=== PATIENT | male | born 1970 | race Hispanic/Latino ===

== ENCOUNTER 2017-07-23 19:16 | Emergency (ER) | payer BC, MEDICARE ==
[2017-07-23 19:54] LABS: #Basophils 0.1 thou/uL (0.0-0.2); #Eosinphils 0.2 thou/uL (0.0-0.7); #Monocytes 0.6 thou/uL (0.11-0.59); #Neutrophils 4.9 thou/uL (1.40-6.50); %Eosinophils 3.1 % (0.0-10.0); %Lymphocytes 25.1 % (21.0-51.0); %Monocytes 7.9 % (0.0-10.0); Hemoglobin 14.7 g/dL (14.0-18.0); Mean Corpuscular HGB CONC 31.9 g/dL (32.0-36.0); Mean Corpuscular Hemoglobin 27.2 pg (27.0-31.0); Mean Corpuscular Volume 85.5 fl (80.0-94.0); Platelet Count 200 thou/uL (130-400); RBC Distribution Width 12.7 % (11.5-14.5); Red Blood Cell (RBC) Count 5.39 mill/uL (4.70-6.10); White Blood Cell (WBC) Count 7.8 thou/uL (4.8-10.8)
[2017-07-23] MEDS ORDERED: metFORMIN 500 MG TAB ONE ×2 (19:58)
[2017-07-23] MEDS ORDERED: Metoprolol Tartrate 5 MG/5 ML VIAL ONE (19:58)
[2017-07-23] MEDS ORDERED: Aspirin 325 MG TAB ONE (19:58)
[2017-07-23 20:08] LABS: Anion Gap 14 mmol/L (10-20); BUN (Urea Nitrogen) 22 mg/dL (8.9-20.6); Calc. Creatinine Clearance 0 mL/min (70-130); Calcium 8.9 mg/dL (7.8-10.44); Carbon Dioxide 24 mmol/L (22-29); Chloride 107 mmol/L (98-107); Estimated GFR-MDRD 34; Glucose 202 mg/dL (70-105); Potassium 3.7 mmol/L (3.5-5.1); Sodium 141 mmol/L (136-145)
--- NOTE | 2017-07-23 20:43 | RAD ---
PORTABLE CHEST: 07/23/2017 PROVIDED CLINICAL HISTORY: Dyspnea. COMPARISON: 12/14/2015 FINDINGS: Evaluation is limited by patient body habitus. The cardiac silhouette appears enlarged. Prominence of the pulmonary vasculature and pulmonary interstitium are noted. No definite evidence for pneumoth orax. No definite focal consolidation. Evaluation for pleural effusion is limited. IMPRESSION: 1. Limited study. 2. Findings suggesting congestive failure. POS: [facility]
== END 2017-07-23 20:38 | disposition home or self-care (01) ==
LOC: MADERS 19:16
DX: I12.9 Hypertensive chronic kidney disease with stage 1 through stage 4 chronic kidney disease, or unspecified chronic kidney disease (principal); N18.3 Chronic kidney disease, stage 3 (moderate); G47.30 Sleep apnea, unspecified; I48.91 Unspecified atrial fibrillation; E11.9 Type 2 diabetes mellitus without complications; E78.5 Hyperlipidemia, unspecified; Z79.899 Other long term (current) drug therapy
CPT/HCPCS: 36416; 71045; 80048; 82947; 83880; 85025; 93005; 96374

== ENCOUNTER 2017-09-19 11:42 | Emergency (ER) | payer BC, MEDICARE ==
[~2017-09-19 11:42] MED LIST: Sodium Chloride 0.9% 1,000 ML BAG ONE
[2017-09-19 12:22] LABS: #Eosinphils 0.1 thou/uL (0.0-0.7); #Lymphocytes 1.1 thou/uL (1.20-3.40); #Monocytes 0.6 thou/uL (0.11-0.59); #Neutrophils 7.4 thou/uL (1.40-6.50); %Basophils 0.5 % (0.0-1.0); %Eosinophils 1.3 % (0.0-10.0); %Lymphocytes 11.5 % (21.0-51.0); %Neutrophils 80.7 % (42.0-75.0); Hemoglobin 13.9 g/dL (14.0-18.0); Mean Corpuscular HGB CONC 32.7 g/dL (32.0-36.0); Mean Corpuscular Volume 85.8 fL (78.0-98.0); Mean Platelet Volume 8.2 fL (7.4-10.4); Platelet Count 181 thou/uL (130-400); RBC Distribution Width 12.5 % (11.5-14.5); Red Blood Cell (RBC) Count 4.94 mill/uL (4.70-6.10); White Blood Cell (WBC) Count 9.2 thou/uL (4.8-10.8)
[2017-09-19] MEDS ORDERED: Nitroglycerin 2% Ointment 1 INCH/1 GM Packet ONE (12:23)
[2017-09-19] MEDS ORDERED: Clindamycin/D5W 900 mg/50 ml Premix Bag ONE (12:23)
[2017-09-19] MEDS ORDERED: Acetaminophen 500 MG TAB ONE (12:23)
[2017-09-19 12:38] LABS: ALT (SGPT) 20 U/L (8-55); AST (SGOT) 14 U/L (5-34); Albumin 3.5 g/dL (3.5-5.0); Alkaline Phosphatase 37 U/L (40-150); Anion Gap 14 mmol/L (10-20); BUN (Urea Nitrogen) 19 mg/dL (8.9-20.6); Bilirubin, Total 0.6 mg/dL (0.2-1.2); Calc. Creatinine Clearance 0 mL/min (70-130); Calcium 8.7 mg/dL (7.8-10.44); Carbon Dioxide 25 mmol/L (22-29); Chloride 107 mmol/L (98-107); Estimated GFR-MDRD 36; Globulin 3.1 g/dL (2.4-3.5); Glucose 147 mg/dL (70-105); Potassium 4.2 mmol/L (3.5-5.1); Protein, Total 6.6 g/dL (6.0-8.3); Sodium 142 mmol/L (136-145)
[2017-09-19 13:03] LABS: Bilirubin Negative (Negative); Blood, Urine Negative (Negative); Clarity Clear (Clear); Glucose, Urine (Dipstick) Negative (Negative); Leukocyte Negative (Negative); Nitrite Negative (Negative); Protein, Urine (Dipstick) > or equal to 300 mg/dL (Neg-Trace); Urobilinogen 0.2 mg/dL (0.2-1.0); pH, Urine 5.5 (5.0-9.0)
[2017-09-19 13:08] LABS: Bacteria/HPF Rare-Few HPF (None Seen); RBC/HPF 0-3 HPF (0-3); Squamous Epithelial 0-3 HPF (0-3); WBC/HPF 0-3 HPF (0-3)
== END 2017-09-19 14:20 | disposition short-term general hospital (02) ==
LOC: MADERS 11:42
DX: L03.115 Cellulitis of right lower limb (principal); I48.91 Unspecified atrial fibrillation; G47.30 Sleep apnea, unspecified; I12.9 Hypertensive chronic kidney disease with stage 1 through stage 4 chronic kidney disease, or unspecified chronic kidney disease; E11.22 Type 2 diabetes mellitus with diabetic chronic kidney disease; N18.3 Chronic kidney disease, stage 3 (moderate)
CPT/HCPCS: 80053; 81003; 81015; 83605; 85025; 87040; 87086; 96361; 96365; J3490

== ENCOUNTER 2019-04-29 08:59 | Outpatient (CLI) | payer BC ==
--- NOTE | 2019-04-29 09:49 | ULT ---
US Renal Bilateral STANDARD History: Chronic kidney disease stage IV Comparison: None. Findings: Real-time grayscale and color evaluation of the kidneys and urinary bladder was performed. The right kidney measures 12.4 x 4.5 x 7.4 cm and the left kidney measures 12.1 x 5.3 x 6.9 cm. Urina ry bladder is unremarkable. No significant post void residual. No renal mass, hydronephrosis, or abnormal calcifications. Impression: No evidence for obstructive uropathy.
== END 2019-04-29 09:00 | disposition home or self-care (01) ==
LOC: MADULT 08:59
PROVIDERS: ATTEND Internal Medicine
DX: N18.4 Chronic kidney disease, stage 4 (severe) (principal)
CPT/HCPCS: 76770

== ENCOUNTER 2020-05-10 18:39 | Emergency (ER) | payer BC ==
[2020-05-10] MEDS ORDERED: Furosemide 40 MG/4 ML VIAL ONE ×2 (19:12→20:30)
[2020-05-10 19:20] LABS: #Basophils 0.1 thou/uL (0.0-0.2); #Eosinphils 0.1 thou/uL (0.0-0.7); #Lymphocytes 1.5 thou/uL (1.20-3.40); #Monocytes 0.9 thou/uL (0.11-0.59); #Neutrophils 9.3 thou/uL (1.40-6.50); %Basophils 0.6 % (0.0-1.0); %Eosinophils 0.8 % (0.0-10.0); %Lymphocytes 12.6 % (21.0-51.0); %Monocytes 7.2 % (0.0-10.0); %Neutrophils 78.9 % (42.0-75.0); Mean Corpuscular HGB CONC 32.2 g/dL (32.0-36.0); Mean Corpuscular Hemoglobin 28.4 pg (27.0-31.0); Mean Platelet Volume 8.5 fL (7.4-10.4); Platelet Count 227 thou/uL (130-400); RBC Distribution Width 12.4 % (11.5-14.5); Red Blood Cell (RBC) Count 4.57 mill/uL (4.70-6.10); White Blood Cell (WBC) Count 11.8 thou/uL (4.8-10.8)
[2020-05-10 19:33] LABS: ALT (SGPT) 16 U/L (8-55); AST (SGOT) 10 U/L (5-34); Albumin 3.4 g/dL (3.5-5.0); Alkaline Phosphatase 52 U/L (40-110); Anion Gap 14 mmol/L (10-20); BUN (Urea Nitrogen) 54 mg/dL (8.9-20.6); Bilirubin, Total 0.7 mg/dL (0.2-1.2); CK (CPK) 199 U/L (30-200); Calc. Creatinine Clearance 0 mL/min (70-130); Carbon Dioxide 23 mmol/L (22-29); Chloride 104 mmol/L (98-107); Globulin 3.6 g/dL (2.4-3.5); Glucose 144 mg/dL (70-105); Potassium 4.3 mmol/L (3.5-5.1); Sodium 137 mmol/L (136-145)
[2020-05-10 19:51] LABS: CKMB 4.5 ng/mL (0-6.6)
[2020-05-10 20:14] LABS: INR-International Normal Ratio 1.1; PTT 36.5 sec (22.9-36.1); Prothrombin Time 14.1 sec (12.0-14.7)
[2020-05-10 20:18] LABS: Bilirubin Negative (Negative); Blood, Urine Moderate (Negative); Clarity Clear (Clear); Glucose, Urine (Dipstick) 100 mg/dL (Negative); Ketone, Urine Negative (Negative); Leukocyte Negative (Negative); Nitrite Negative (Negative); Protein, Urine (Dipstick) > or equal to 300 mg/dL (Neg-Trace); Urobilinogen 0.2 mg/dL (Less than 2); pH, Urine 5.5 (5.0-9.0)
[2020-05-10 20:23] LABS: Bacteria/HPF Rare-Few HPF (None Seen); Mucous/LPF 1+ LPF (<2+); WBC/HPF 0-3 HPF (0-3)
[2020-05-10 20:25] LABS: Cocaine Metabolite Screen Not Detected (NotDetected); Methamphetamine Not Detected (NotDetected); Opiate Screen Not Detected (NotDetected); Phencyclidine (PCP) Not Detected (NotDetected); THC/Cannabinoid Screen Not Detected (NotDetected)
[2020-05-10 20:26] LABS: Amphetamine Not Detected (NotDetected); Barbiturates Screen Not Detected (NotDetected); Benzodiazepine Screen Not Detected (NotDetected); Medtox Control Line Valid? VALID (VALID); Methadone Not Detected (NotDetected); Oxycodone Screen Not Detected (NotDetected); Tricyclic Screen Not Detected (NotDetected)
== END 2020-05-10 21:16 | disposition short-term general hospital (02) ==
LOC: MADERS 18:39
DX: I13.0 Hypertensive heart and chronic kidney disease with heart failure and stage 1 through stage 4 chronic kidney disease, or unspecified chronic kidney disease (principal); I50.9 Heart failure, unspecified; N18.30 Chronic kidney disease, stage 3 unspecified; N17.9 Acute kidney failure, unspecified; R79.89 Other specified abnormal findings of blood chemistry; I48.91 Unspecified atrial fibrillation; G47.30 Sleep apnea, unspecified; E78.5 Hyperlipidemia, unspecified; Z79.899 Other long term (current) drug therapy; Z79.01 Long term (current) use of anticoagulants
CPT/HCPCS: 71045; 80053; 80306; 81003; 81015; 82550; 82553; 83880; 84443; 84484; 85025; 85610; 85730; 93005; 94760; 96374; 96376; J1940

== ENCOUNTER 2020-11-15 05:12 | Emergency (ER) | payer MEDICARE, MEDICAID | END 2020-11-15 07:00 | disposition home or self-care (01) | LOC: MADERS 05:12 | DX: S50.01XA Contusion of right elbow, initial encounter (principal); L02.213 Cutaneous abscess of chest wall; G47.30 Sleep apnea, unspecified; I48.91 Unspecified atrial fibrillation; I12.9 Hypertensive chronic kidney disease with stage 1 through stage 4 chronic kidney disease, or unspecified chronic kidney disease; E11.22 Type 2 diabetes mellitus with diabetic chronic kidney disease; N18.30 Chronic kidney disease, stage 3 unspecified; E78.5 Hyperlipidemia, unspecified; E78.00 Pure hypercholesterolemia, unspecified; Z79.01 Long term (current) use of anticoagulants; Z79.84 Long term (current) use of oral hypoglycemic drugs; Z79.899 Other long term (current) drug therapy; Z99.2 Dependence on renal dialysis; W18.30XA Fall on same level, unspecified, initial encounter | CPT/HCPCS: 93005 ==

== ENCOUNTER 2021-05-28 19:38 | Emergency (ER) | payer MEDICARE, MEDICAID ==
[2021-05-28 20:17] LABS: #Eosinphils 0.1 thou/uL (0.0-0.7); #Lymphocytes 1.2 thou/uL (1.20-3.40); #Monocytes 0.4 thou/uL (0.11-0.59); #Neutrophils 6.4 thou/uL (1.40-6.50); %Basophils 0.4 % (0.0-1.0); %Eosinophils 1.8 % (0.0-10.0); %Lymphocytes 14.7 % (21.0-51.0); %Monocytes 5.1 % (0.0-10.0); Hemoglobin 10.8 g/dL (14.0-18.0); Mean Corpuscular HGB CONC 34.4 g/dL (32.0-36.0); Mean Corpuscular Hemoglobin 32.9 pg (27.0-31.0); Mean Corpuscular Volume 95.4 fL (78.0-98.0); Mean Platelet Volume 5.4 fL (7.4-10.4); Platelet Count 208 thou/uL (130-400); RBC Distribution Width 13.4 % (11.5-14.5); Red Blood Cell (RBC) Count 3.29 mill/uL (4.70-6.10); White Blood Cell (WBC) Count 8.2 thou/uL (4.8-10.8)
[2021-05-28 20:32] LABS: Base Excess-Venous -3.3 mmol/L (-2.0 to 3.0); Bicarbonate (HCO3v) 22.8 mmol/L (22.0-28.0); CO2 Tension (PvCO2) 44.2 mmHg (42.0-51.0); Calcium, Ionized 0.87 mmol/L (1.15-1.33); Chloride 106 mmol/L (98-107); Hemoglobin - Calc 10.6 g/dL (14.0-18.0); Potassium 4.9 mmol/L (3.5-5.1); Sodium 137 mmol/L (138-145); T. Carbon Dioxide 24.1 mmol/L (22.0-28.0); vO2 Saturation-calc 97.9 % (60.0-85.0)
[2021-05-28 20:38] LABS: ALT (SGPT) 17 U/L (8-55); AST (SGOT) 9 U/L (5-34); Albumin 3.8 g/dL (3.5-5.0); Alkaline Phosphatase 60 U/L (40-110); Anion Gap 29 mmol/L (10-20); BUN (Urea Nitrogen) 101 mg/dL (8.4-25.7); Bilirubin, Total 0.6 mg/dL (0.2-1.2); Calc. Creatinine Clearance 0 mL/min (70-130); Calcium 8.4 mg/dL (7.8-10.44); Carbon Dioxide 20 mmol/L (22-29); Chloride 99 mmol/L (98-107); Globulin 4.1 g/dL (2.4-3.5); Magnesium 2.2 mg/dL (1.6-2.6); Protein, Total 7.9 g/dL (6.0-8.3); Sodium 143 mmol/L (136-145)
[2021-05-28 20:49] LABS: Glucose 57 mg/dL (70-105)
== END 2021-05-28 22:11 | disposition short-term general hospital (02) ==
LOC: MADERS 19:38
DX: J96.00 Acute respiratory failure, unspecified whether with hypoxia or hypercapnia (principal); E87.70 Fluid overload, unspecified; G47.30 Sleep apnea, unspecified; I48.91 Unspecified atrial fibrillation; E78.2 Mixed hyperlipidemia; E11.22 Type 2 diabetes mellitus with diabetic chronic kidney disease; I12.9 Hypertensive chronic kidney disease with stage 1 through stage 4 chronic kidney disease, or unspecified chronic kidney disease; N18.30 Chronic kidney disease, stage 3 unspecified; Z79.84 Long term (current) use of oral hypoglycemic drugs; Z79.899 Other long term (current) drug therapy; Z79.01 Long term (current) use of anticoagulants
CPT/HCPCS: 36416; 71045; 80053; 82330; 82803; 83735; 83880; 84484; 85025; 93005

== ENCOUNTER 2021-10-28 17:38 | Emergency (ER) | payer OTHER ==
[~2021-10-28 17:38] MED LIST changes: -Sodium Chloride 0.9% 1,000 ML BAG ONE; +Sodium Chloride 0.9% 500 ML BAG ONE
[2021-10-28 18:41] LABS: #Basophils 0.1 thou/uL (0.0-0.2); #Eosinphils 0.2 thou/uL (0.0-0.7); #Lymphocytes 1.5 thou/uL (1.20-3.40); #Monocytes 0.6 thou/uL (0.11-0.59); #Neutrophils 7.5 thou/uL (1.40-6.50); %Basophils 0.7 % (0.0-1.0); %Eosinophils 2.5 % (0.0-10.0); %Lymphocytes 15.4 % (21.0-51.0); %Neutrophils 75.5 % (42.0-75.0); Hemoglobin 10.4 g/dL (14.0-18.0); Mean Corpuscular HGB CONC 31.5 g/dL (32.0-36.0); Mean Corpuscular Volume 95.4 fL (78.0-98.0); Mean Platelet Volume 8.6 fL (7.4-10.4); Platelet Count 240 thou/uL (130-400); RBC Distribution Width 13.8 % (11.5-14.5); Red Blood Cell (RBC) Count 3.46 mill/uL (4.70-6.10); White Blood Cell (WBC) Count 9.9 thou/uL (4.8-10.8)
[2021-10-28 18:57] LABS: ALT (SGPT) 18 U/L (8-55); AST (SGOT) 10 U/L (5-34); Albumin 3.7 g/dL (3.5-5.0); Alkaline Phosphatase 65 U/L (40-110); Anion Gap 18 mmol/L (10-20); BUN (Urea Nitrogen) 29 mg/dL (8.4-25.7); Bilirubin, Total 0.5 mg/dL (0.2-1.2); Calc. Creatinine Clearance 0 mL/min (70-130); Calcium 9.5 mg/dL (7.8-10.44); Carbon Dioxide 30 mmol/L (22-29); Chloride 95 mmol/L (98-107); Estimated GFR 7; Globulin 4.4 g/dL (2.4-3.5); Glucose 154 mg/dL (70-105); INR-International Normal Ratio 1.3; Potassium 4.7 mmol/L (3.5-5.1); Protein, Total 8.1 g/dL (6.0-8.3); Prothrombin Time 16.3 sec (12.0-14.7); Sodium 138 mmol/L (136-145)
[2021-10-28] MEDS ORDERED: Clindamycin/D5W 900 mg/50 ml Premix Bag ONE (18:57)
[2021-10-28] MEDS ORDERED: Cefepime 2 GM VIAL ONE (18:57)
[2021-10-28] MEDS ORDERED: Sodium Chloride 0.9% 250 ML 500 ML ONE (18:57)
[2021-10-28] MEDS ORDERED: Sodium Chloride 0.9% 100 ML ONE (18:57)
[2021-10-28 19:18] LABS: PTT 36.9 sec (22.9-36.1)
== END 2021-10-28 21:16 | disposition short-term general hospital (02) ==
LOC: MADERS 17:38
DX: L02.214 Cutaneous abscess of groin (principal); I48.91 Unspecified atrial fibrillation; I12.0 Hypertensive chronic kidney disease with stage 5 chronic kidney disease or end stage renal disease; E11.22 Type 2 diabetes mellitus with diabetic chronic kidney disease; N18.6 End stage renal disease; E78.00 Pure hypercholesterolemia, unspecified; G47.30 Sleep apnea, unspecified; E66.01 Morbid (severe) obesity due to excess calories; Z68.45 Body mass index [BMI] 70 or greater, adult; Z99.2 Dependence on renal dialysis; Z79.01 Long term (current) use of anticoagulants; Z79.899 Other long term (current) drug therapy
CPT/HCPCS: 36415; 80053; 82550; 83605; 85025; 85610; 85730; 86140; 87040; 87070; 87077; 87186; 87205; 94760; 96365; 96367; 96368; J0692; J3370; J3490; J7030; J7050

== ENCOUNTER 2022-02-26 14:15 | Emergency (ER) | payer MEDICAID, OTHER ==
[2022-02-26] MEDS ORDERED: Dexamethasone 10 MG/ML VIAL ONE (15:01)
== END 2022-02-26 16:20 | disposition home or self-care (01) ==
LOC: MADERS 14:15
DX: R05.9 Cough, unspecified (principal); I12.9 Hypertensive chronic kidney disease with stage 1 through stage 4 chronic kidney disease, or unspecified chronic kidney disease; E11.22 Type 2 diabetes mellitus with diabetic chronic kidney disease; N18.9 Chronic kidney disease, unspecified; E78.00 Pure hypercholesterolemia, unspecified; Z99.2 Dependence on renal dialysis; Z79.01 Long term (current) use of anticoagulants; Z20.822 Contact with and (suspected) exposure to COVID-19
CPT/HCPCS: 71045; 87804; 96372; J1100; J7620; U0003; U0005

== ENCOUNTER 2022-03-05 14:42 | Emergency (ER) | payer OTHER | END 2022-03-05 16:01 | disposition home or self-care (01) | LOC: MADERS 14:42 | DX: J20.9 Acute bronchitis, unspecified (principal); E11.22 Type 2 diabetes mellitus with diabetic chronic kidney disease; I12.0 Hypertensive chronic kidney disease with stage 5 chronic kidney disease or end stage renal disease; N18.5 Chronic kidney disease, stage 5; Z99.2 Dependence on renal dialysis; E78.00 Pure hypercholesterolemia, unspecified; E66.9 Obesity, unspecified; Z79.899 Other long term (current) drug therapy; Z79.01 Long term (current) use of anticoagulants | CPT/HCPCS: 99283 ==

== ENCOUNTER 2022-03-09 15:51 | Emergency (ER) | payer OTHER ==
[2022-03-09] MEDS ORDERED: Benzonatate 100 MG CAP ONE (18:24)
[2022-03-09] MEDS ORDERED: Lidocaine 5% Patch TD SCH (19:00)
[2022-03-10] MEDS ORDERED: Transdermal Patch Removal TOP SCH (07:00)
== END 2022-03-09 19:10 | disposition home or self-care (01) ==
LOC: MADERS 15:51
DX: S23.41XA Sprain of ribs, initial encounter (principal); J20.9 Acute bronchitis, unspecified; I12.9 Hypertensive chronic kidney disease with stage 1 through stage 4 chronic kidney disease, or unspecified chronic kidney disease; E11.22 Type 2 diabetes mellitus with diabetic chronic kidney disease; N18.30 Chronic kidney disease, stage 3 unspecified; E78.5 Hyperlipidemia, unspecified; X58.XXXA Exposure to other specified factors, initial encounter; Z79.899 Other long term (current) drug therapy; Z99.2 Dependence on renal dialysis; Z79.01 Long term (current) use of anticoagulants
CPT/HCPCS: 71046; J7620

== ENCOUNTER 2022-03-18 01:36 | Emergency (ER) | payer OTHER ==
[2022-03-18 01:59] LABS: #Basophils 0.1 thou/uL (0.0-0.2); #Lymphocytes 0.6 thou/uL (1.20-3.40); #Monocytes 0.8 thou/uL (0.11-0.59); #Neutrophils 12.4 thou/uL (1.40-6.50); %Basophils 0.4 % (0.0-1.0); %Lymphocytes 4.2 % (21.0-51.0); %Monocytes 5.7 % (0.0-10.0); %Neutrophils 89.6 % (42.0-75.0); Hemoglobin 8.9 g/dL (14.0-18.0); Mean Corpuscular HGB CONC 33.5 g/dL (32.0-36.0); Mean Corpuscular Hemoglobin 31.6 pg (27.0-31.0); Mean Corpuscular Volume 94.2 fl (78.0-98.0); Mean Platelet Volume 6.8 fL (7.4-10.4); Platelet Count 196 10x3/uL (130-400); RBC Distribution Width 14.7 % (11.5-14.5); Red Blood Cell (RBC) Count 2.81 mill/uL (4.70-6.10); White Blood Cell (WBC) Count 13.9 10x3/uL (4.8-10.8)
[2022-03-18] MEDS ORDERED: Sodium Chloride 0.9% 1,000 ML ONE (02:00)
[2022-03-18 02:20] LABS: ALT (SGPT) 32 U/L (8-55); AST (SGOT) 24 U/L (5-34); Albumin 2.5 g/dL (3.5-5.0); Alkaline Phosphatase 42 U/L (40-110); Anion Gap 22 mmol/L (10-20); BUN (Urea Nitrogen) 59 mg/dL (8.4-25.7); Bilirubin, Total 0.4 mg/dL (0.2-1.2); CK (CPK) 353 U/L (30-200); Calc. Creatinine Clearance 0 mL/min (70-130); Calcium 7.6 mg/dL (7.8-10.44); Carbon Dioxide 17 mmol/L (22-29); Chloride 101 mmol/L (98-107); Estimated GFR 5; Globulin 3.5 g/dL (2.4-3.5); Glucose 227 mg/dL (70-105); Potassium 4.1 mmol/L (3.5-5.1); Sodium 136 mmol/L (136-145)
[2022-03-18 02:20] LABS: SARS-CoV-2 NAA Rapid Test Not Detected (NotDetected)
[2022-03-18 02:30] LABS: Lipase 39 U/L (8-78); Magnesium 1.8 mg/dL (1.6-2.6)
[2022-03-18 02:36] LABS: CKMB 2.7 ng/mL (0-6.6)
[2022-03-18 02:44] LABS: Base Excess-Venous -5.3 mmol/L (-2.0 to 3.0); Bicarbonate (HCO3v) 18.9 mmol/L (22.0-28.0); Calcium, Ionized 0.87 mmol/L (1.15-1.33); Chloride 105 mmol/L (98-107); Hemoglobin - Calc 8.3 g/dL (14.0-18.0); Sodium 134 mmol/L (138-145); T. Carbon Dioxide 19.9 mmol/L (22.0-28.0); vO2 Saturation-calc 99.8 % (60.0-85.0)
[2022-03-18] MEDS ORDERED: Vancomycin 1 GM VIAL ONE (03:12)
[2022-03-18] MEDS ORDERED: Piperacillin/Tazobactam 4.5 GM VIAL ONE (03:12)
[2022-03-18] MEDS ORDERED: Sodium Chloride 0.9% 250 ML 250 ML ONE (03:12)
[2022-03-18] MEDS ORDERED: Sodium Chloride 0.9% 100 ML ONE (03:13)
[2022-03-18] MEDS ORDERED: Iopamidol 370 76% 100 ML VIAL ONE (08:40)
== END 2022-03-18 03:33 | disposition short-term general hospital (02) ==
LOC: MADERS 01:36
DX: A41.9 Sepsis, unspecified organism (principal); L02.211 Cutaneous abscess of abdominal wall; R77.8 Other specified abnormalities of plasma proteins; E78.5 Hyperlipidemia, unspecified; E11.22 Type 2 diabetes mellitus with diabetic chronic kidney disease; N18.30 Chronic kidney disease, stage 3 unspecified; I12.9 Hypertensive chronic kidney disease with stage 1 through stage 4 chronic kidney disease, or unspecified chronic kidney disease; E66.9 Obesity, unspecified; Z99.2 Dependence on renal dialysis
CPT/HCPCS: 71045; 74177; 80053; 82330; 82550; 82553; 82803; 83605; 83690; 83735; 83880; 84484; 85025; 87040; 87804; 87807; 93005; 96365; 96366; 96374; 96375; J2543; J3370; J3490; J7050; Q9967; U0002